=== PATIENT | female | born 1990 | race Caucasian/White ===

== ENCOUNTER 2016-07-27 00:22 | Inpatient (IN) | payer OTHER ==
--- NOTE | ~2016-07-27 | PA ---
Unit #: [id number] #: [id number] Patient: RADHA POMPA [id number] [facility] [address] [place] [address] [id number] MR#: [id number] NAME: RADHA POMPA ROOM: P263 Age: 26 Sex: F Admission Date: 07/27/2016 : 1990 Date of Assessment: 07/27/2016 Attending Physician: Balta Norman M.D. Admitting Physician: Balta Norman M.D. Primary Care Physician: Generic Doctor Not In System PSYCHIATRIC ASSESSMENT DATE OF SERVICE 07/27/2016. IDENTIFYING DATA Ms. Pompa is a 26-year-old single white female who is resident of [place], [place], and was self-referred to the hospital on a voluntary basis. CHIEF COMPLAINT "I'm having suicidal thoughts on and off for a week." HISTORY OF PRESENT ILLNESS Ms. Pompa is a 26-year-old white female who was self-referred to the hospital. Upon presentation, on evaluation by me, the patient stated that she has been diagnosed with bipolar disorder, and dissociative identity disorder since 12/2015 has been on different psychotropic medication, but she has not been functioning very well, though she stated that her psychosis was improved, but at the time, she feels that she is regressing back to her old psychotic state and does report increasing depression and having suicidal thoughts on and off for 1 week and stated that she does not have a current plan, but keeps a plan in her phone to [facility] and stated that she has had no plan since of last year and stated that she was tearful and helplessness, sleeping more than usual on daily basis, and stated that if she is not working, she would not get up and take a bath. She is currently employed at [employer]; however, she reports that she is struggling to maintain her functioning level and that a girlfriend may be moving out of state and feels that she is being abandoned and having poor social support system leading to increase in depression, anxiety, feelings of hopelessness and helplessness, and suicidal ideations with a plan and as such, recommendation for inpatient level of care was made and the patient was transferred to us. SUBSTANCE ABUSE HISTORY The patient denies any history of alcohol or drug abuse. PAST PSYCHIATRIC HISTORY The patient has had history of inpatient and outpatient psychiatric treatment, and has been diagnosed and treated for bipolar disorder and currently she is on Risperdal, Zoloft, and BuSpar. PAST MEDICAL HISTORY The patient's medical history is insignificant. Unit #: [id number] #: [id number] Patient: RADHA POMPA ALLERGIES No known medication allergies. CURRENT MEDICATIONS Trazodone, BuSpar, Zoloft, and Risperdal. PERSONAL AND SOCIAL HISTORY A 26-year-old white female who reports that she is single and employed at [employer], and lives by herself and has poor social support system. MENTAL STATUS EXAMINATION Young white female who was casually dressed with fair personal hygiene, appears to be in no acute distress or discomfort. She was awake and alert on interaction with intact orientation to time, place, and person. Her mood was anxious and depressed with a congruent affect. Her speech was slow and restricted in content. Her thought processes were disorganized with some looseness of associations and suicidal ideations. Her insight and judgment remain significantly impaired. DIAGNOSTIC IMPRESSION Psychiatric: Bipolar disorder, most recent episode depressed, recurrent, moderate, without psychotic features. Medical: None. Stressors: Moderate psychosocial stressors. TREATMENT PLAN 1. The patient has presented with history of mood disorder and has been decompensating, and will need inpatient hospitalization for safety and stabilization. We will start her back on her home medications. We will adjust the medications and monitor the response. 2. Supportive therapy was provided to the patient. 3. Safe, structured, and nourishing environment will be provided. ESTIMATED LENGTH OF STAY 5 to 7 days. ABILITY TO HELP SELF Limited. WILLINGNESS TO HELP SELF The patient appears to be willing to help self. STRENGTHS 1. Communicative. 2. Cooperative. PROBLEMS 1. Chronic dysphoric symptoms. 2. Poor social support system. DISCHARGE CRITERIA This will be contingent upon the patient's ability to show resolution of her depression and anxiety and her ability to stay safe to herself, particularly after discharge from the hospital. Dictated by... Balta Norman M.D. Unit #: [id number] #: [id number] Patient: RADHA POMPA IAA/modl TD: 07/27/2016 17:37 JOB #: [id number] PSYCHIATRIC ASSESSMENT Page 1 of 1 X Balta Norman MD PSYCHIATRIC ASSESSMENT
--- NOTE | ~2016-07-27 | DS ---
Unit #: [id number] #: [id number] Patient: RADHA POMPA [id number] [facility] [address] [place] [address] [id number] MR#: [id number] NAME: RADHA POMPA ROOM: 63 Age: 26 Sex: F Admission Date: 07/27/2016 : 1990 Discharge Date: 07/31/2016 Attending Physician: Balta Norman M.D. Primary Care Physician: Generic Doctor Not In System DISCHARGE SUMMARY IDENTIFYING DATA Ms. Pompa is a 26-year-old single white female, who is a resident of [place], [place], and was self-referred to the hospital on a voluntary basis. DISCHARGE DIAGNOSES Psychiatric: Bipolar disorder, most recent episode depressed, recurrent, moderate, without psychotic features. Medical: None. Stressors: Moderate psychosocial stressors. HISTORY OF PRESENT ILLNESS Please see initial psychiatric evaluation for details. PAST PSYCHIATRIC HISTORY Please see initial psychiatric evaluation for details. PAST MEDICAL HISTORY Please see initial psychiatric evaluation for details. HOSPITAL COURSE [facility] and was oriented to the hospital environment. Routine p.r.n. medications were initiated, and she was started back on her home medications and she was closely monitored. She was taking the medications regularly and was tolerating them fairly well and was able to show a decent and therapeutic response with significant improvement in depression and anxiety and was willing to continue treatment on an outpatient basis and as such, it was decided that she will be discharged home and will continue treatment on an outpatient basis. DISCHARGE MEDICATIONS Zoloft 50 mg a day for depression, Risperdal 2 mg at bedtime for bipolar, BuSpar 15 mg t.i.d. for anxiety. DISCHARGE CONDITION Stable. PROGNOSIS Fair. Dictated by... Balta Norman M.D. Unit #: [id number] #: [id number] Patient: RADHA POMPA IAA/modl TD: 07/31/2016 07:13 JOB #: [id number] DISCHARGE SUMMARY Page 1 of 1 X Balta Norman MD X DISCHARGE SUMMARY
--- NOTE | ~2016-07-27 | PN ---
Unit #: [id number] #: [id number] Patient: RADHA POMPA [id number] [facility] [address] [place] [address] [id number] MR#: [id number] NAME: RADHA POMPA ROOM: [facility] Age: 26 Sex: F Admission Date: 07/27/2016 : 1990 Attending Physician: Balta Norman M.D. Admitting Physician: Balta Norman M.D. Primary Care Physician: Sunitha Doctor Not In System [facility] PROGRESS NOTES DATE 07/30/2016 DISCUSSION Ms. Pompa is a 26-year-old white female who was seen today and chart was reviewed and case was discussed with the staff. She has been anxious, withdrawn and rather seclusive to herself. Meanwhile, she has been cooperative with treatment recommendations and has been taking medications and tolerating them fairly well with no reported side effects. MENTAL STATUS EXAMINATION Young white female who was casually dressed with fair personal hygiene and appears to be in no acute distress or discomfort. She was awake and alert with intact orientation. Her mood was anxious and depressed with congruent affect. She denies any suicidal or homicidal ideations. Her insight and judgement remains slightly impaired. TREATMENT PLAN 1. Will continue on current medications and treatment protocol. Will monitor her response to the medications and make further adjustments as needed. 2. Will continue to follow up. Dictated by... Balta Norman M.D. IAA/vesna TD: 07/30/2016 18:24 JOB #: [id number] Unit #: [id number] #: [id number] Patient: RADHA POMPA [facility] PROGRESS NOTES Page 1 of 1 X Balta Norman MD PROGRESS NOTE
--- NOTE | ~2016-07-27 | PN ---
Unit #: [id number] #: [id number] Patient: RADHA POMPA [id number] [facility] [address] [place] [address] [id number] MR#: [id number] NAME: RADHA POMPA ROOM: [facility] Age: 26 Sex: F Admission Date: 07/27/2016 : 1990 Attending Physician: Balta Norman M.D. Admitting Physician: Balta Norman M.D. Primary Care Physician: Generic Doctor Not In System [facility] PROGRESS NOTES DATE 07/29/2016 DISCUSSION Ms. Pompa is a 26-year-old white female with mood disorder who was seen today, chart was reviewed and case was discussed with the staff. She has been anxious, withdrawn but has not shown any agitation or irritability. She has been cooperative with treatment recommendations as she has been taking medications and tolerating them fairly well. MENTAL STATUS EXAMINATION Young white female who was casually dressed with fair personal hygiene, appears to be in no acute distress or discomfort. She was awake and alert on interaction with intact orientation. Mood was anxious and depressed with congruent affect. Speech is slow and goal directed. Patient denies any current suicidal or homicidal ideation. Her insight and judgment remain slightly impaired. TREATMENT PLAN Will continue on current medications and treatment protocol. We will monitor her response to medication and make further adjustments as needed. We will continue to follow up. Dictated by... Kathe Garcia TD: 07/29/2016 12:54 JOB #: [id number] [facility] PROGRESS NOTES Page 1 of 1 X Balta Norman MD PROGRESS NOTE
--- NOTE | ~2016-07-27 | PN ---
Unit #: [id number] #: [id number] Patient: RADHA POMPA [id number] [facility] [address] [place] [address] [id number] MR#: [id number] NAME: RADHA POMPA ROOM: [facility] Age: 26 Sex: F Admission Date: 07/27/2016 : 1990 Attending Physician: Balta Norman M.D. Admitting Physician: Balta Norman M.D. Primary Care Physician: Generic Doctor Not In System [facility] PROGRESS NOTES DATE July 28, 2016 DISCUSSION Ms. Pompa is a 26-year-old white female, who was seen today and chart was reviewed and the case was discussed with the staff. She remains anxious, withdrawn, depressed, and father seclusive to herself, meanwhile, she has been cooperative with the treatment recommendations and she has been taking the medications and tolerating them fairly well with no reported side effects. MENTAL STATUS EXAMINATION Young white female, who was casually dressed with fair personal hygiene and appears to be in no acute distress or discomfort. The patient was awake and alert on interaction with intact orientation. Her mood was anxious with a congruent affect. The patient denies any suicidal or homicidal ideations. Her insight and judgment remain slightly impaired. TREATMENT PLAN 1. We will continue her on her current medications and treatment protocol, and will monitor her response to the medications, and make further adjustments as needed. 2. We will continue to followup. Dictated by... Kathe Garcia/silvestre TD: 07/29/2016 05:27 JOB #: [id number] Unit #: [id number] #: [id number] Patient: RADHA POMPA [facility] PROGRESS NOTES Page 1 of 1 X Balta Norman MD X PROGRESS NOTE
--- NOTE | ~2016-07-27 | HP ---
Unit #: [id number] #: [id number] Patient: RADHA POMPA [id number] [place] [address] [id number] MR#: [id number] NAME: RADHA POMPA ROOM: P263 Age: 26 Sex: F Admission Date: 07/27/2016 : 1990 Attending Physician: Balta Norman M.D. Admitting Physician: Balta Norman M.D. Primary Care Physician: Generic Doctor Not In System HISTORY AND PHYSICAL HISTORY OF PRESENT ILLNESS The patient is a 26-year-old female admitted to [address] [place] [address] on 07/27/2016 for suicidal ideations. PAST MEDICAL HISTORY Obesity. PAST SURGICAL HISTORY Cholecystectomy. ALLERGIES No known drug allergies. SOCIAL HISTORY Patient is employed at [employer]. She denies alcohol, tobacco and drug use. FAMILY HISTORY Noncontributory. REVIEW OF SYSTEMS CONSTITUTIONAL: No fever or chills. HEENT: Denies any sore throat, ear pain or runny nose. CARDIOVASCULAR: Denies chest pain, irregular heart rhythm or palpitations. CHEST: Denies shortness of breath or cough. No hemoptysis. GASTROINTESTINAL: Denies nausea, vomiting, diarrhea or chronic constipation. ENDOCRINE: Denies history of increased thirst or urination. No recent significant weight loss or gain. GENITOURINARY: Denies dysuria, frequency, or hematuria. SKIN: Denies any rashes. HEMATOLOGIC: Denies history of increased bleeding or bruising. MUSCULOSKELETAL: Denies any hot, swollen joints. No generalized muscle pain. NEUROLOGIC: Denies problems with vision or speech. No frequent, severe headaches. No numbness, tingling or weakness in any extremities. Denies loss of bladder or bowel control. CURRENT MEDICATIONS 1. Trazodone. 2. BuSpar. 3. Zoloft. 4. Risperdal. Unit #: [id number] #: [id number] Patient: RADHA POMPA PHYSICAL EXAMINATION GENERAL: She is awake, alert, oriented, in no acute distress. VITAL SIGNS: Temperature 98.1, heart rate 94, respirations 17, blood pressure 122/85. HEIGHT: 5 feet 5 inch. WEIGHT: 240 pounds. SKIN: Warm and dry without rash or lesion. HEENT: Normocephalic. TMs not viewed. Oral and nasal passages clear. Conjunctivae clear. PERRLA. EOMs intact. NECK: Supple without lymphadenopathy or thyromegaly. HEART: Regular rate and rhythm without murmur. LUNGS: Clear. ABDOMEN: Soft, nontender. : Not done. EXTREMITIES: No evidence of cyanosis, clubbing or edema. Moves all without focal deficit. NEUROLOGICAL: Grossly within normal limits. Cranial Nerves: II: Visual gray are intact. III, IV AND : Extraocular movements are intact. Pupils are equal, round and reactive to light. V: Facial sensation is grossly normal. VII: Facial movements and expression are normal. VIII: Auditory acuity grossly intact. IX, X: Uvula is midline. Phonation is normal. XI: Patient shrugs shoulders and turns head normally. XII: Tongue protrudes in the midline. Sensory and Motor Function: Sensory and motor sensation is grossly normal. Motor: moves all extremities well. Coordination: Gait is normal. Deep Tendon Reflexes: Intact. IMPRESSION 1. Psychiatric admission. 2. Obesity. RECOMMENDATIONS PSYCHIATRIC: Per psychiatrist. MEDICAL: No contraindications to participate in facility's activities. MEDICAL PROGNOSIS Good. MEDICAL CONDITION Stable. Dictated by... Farrah Archibald/vesna TD: 07/27/2016 21:56 JOB #: [id number] Unit #: [id number] #: [id number] Patient: RADHA PMOPA HISTORY AND PHYSICAL Page 1 of 1 X YONATAN DINERO APRN HISTORY AND PHYSICAL
[2016-07-27 14:16] LABS: URINE APPEARANCE TURBID; URINE BILIRUBIN NEG (NEG); URINE BLOOD NEG (NEG); URINE COLOR YELLOW; URINE GLUCOSE NEG (NEG); URINE KETONE NEG (NEG); URINE LEUKOCYTE ESTERASE TRACE (NEG); URINE NITRATE NEG (NEG); URINE PROTEIN NEG (NEG); URINE SPECIFIC GRAVITY 1.024 (1.003-1.035); URINE UROBILINOGEN 0.2 MG/DL (NEG)
[2016-07-27 14:21] LABS: U HYALINE CASTS AUWI 0-2 /[LPF]; URINE BACTERIA AUWI NEG (NEGATIVE); URINE SQUAMOUS EPITHELIAL CELL NONE SEEN /[HPF]
[2016-07-27 14:30] LABS: AMPHETAMINE NEG (NEG); BARBITURATES NEG (NEG); BENZODIAZEPINES NEG (NEG); COCAINE NEG (NEG); MARIJUANA NEG (NEG); OPIATES NEG (NEG); TRICYCLIC ANTIDEPRESSANTS NEG (NEG); U METHADONE NEG (NEG)
[2016-07-29 12:31] LABS: BASOPHIL% 0.5 % (0-2.5); EOSINOPHIL# 0.2 X10e3 (0-0.7); EOSINOPHIL% 1.7 % (0.0-7.0); HEMATOCRIT 42.2 % (35.0-45.0); HEMOGLOBIN 13.9 gm/dL (12.0-16.0); LYMPHOCYTE# 2.7 X10e3 (1.0-3.5); LYMPHOCYTE% 28.2 % (17.0-45.0); MEAN CELL VOLUME 89.5 FL (83-96); MEAN CORPUSCULAR HEMOGLOBIN 29.5 PG (28-34); MONOCYTE# 0.5 X10e3 (0-1.0); MONOCYTE% 5.8 % (3.0-12.0); NEUTROPHIL% 63.8 % (40-75); PLATELET COUNT 282 X10e3 (140-420); RED BLOOD COUNT 4.72 X10e (3.90-5.30); RED CELL DISTRIBUTION WIDTH 13.9 % (11.0-15.5); WHITE BLOOD COUNT 9.4 X10e3 (4.0-10.5)
[2016-07-29 12:39] LABS: DIFF IND NO
[2016-07-29 12:52] LABS: THYROID STIMULATING HORMONE 2.69 uIU/ml (0.34-5.60)
[2016-07-29 12:59] LABS: FREE THYROXIN (T4) 0.68 ng/dL (0.58-1.64)
[2016-07-29 13:08] LABS: ALBUMIN SERUM 4.4 g/dL (3.5-5.0); BUN/CREATININE RATIO 17.5; CREATININE SERUM 0.8 mg/dL (0.6-1.4); GLOM FILT RATE Estimated 101.8 mL/min (>60); POTASSIUM 3.9 mmol/L (3.5-5.1); PROTEIN TOTAL SERUM 7.5 g/dL (6.0-8.3)
== END 2016-07-31 10:45 | disposition home or self-care (01) | DRG 885 ==
LOC: P2L 00:22
PROVIDERS: Psychiatry & Neurology Psychiatry
DX: F31.32 Bipolar disorder, current episode depressed, moderate (principal); R45.851 Suicidal ideations; E66.9 Obesity, unspecified
CPT/HCPCS: 80053; 80307; 81003; 84439; 84443; 84703; 85025